=== PATIENT | male | born 1955 | race Caucasian/White ===

== ENCOUNTER 2021-01-07 14:52 | Emergency (ER) | payer OTHER ==
[2021-01-07 15:56] LABS: Absolute Lymphocytes (CBC) 1.3 K/uL (0.7-4.9); Basophils % 0.7 % (0-1.3); Hematocrit 37.4 % (39.6-49.0); Lymphocytes % 12.9 % (15.3-44.8); RBC Red Blood Cell Count 4.46 M/uL (4.33-5.43)
[2021-01-07] MEDS ORDERED: NA CHLORIDE 0.9% 1,000 ML ONE (16:04)
[2021-01-07] MEDS ORDERED: ONDANSETRON 4 MG/2 ML VIAL ONE ×2 (16:04→19:01)
[2021-01-07] MEDS ORDERED: MORPHINE 4 MG/ML SYR ONE (16:04)
[2021-01-07 16:22] LABS: Bilirubin Direct 0.2 mg/dL (0-0.2); Bilirubin Total 0.5 mg/dL (0.2-1.0)
--- NOTE | 2021-01-07 17:06 | RAD REPORT ---
EXAM DESCRIPTION: CTAbdomen Pelvis W Contrast - 01/07/2021 4:57 pm CLINICAL HISTORY: . Vomiting and Diarrhea COMPARISON: CT ABD PELVIS W CONTRAST dated 03/06/2014 TECHNIQUE: Biphasic CT imaging of the abdomen and pelvis was performed with 100 ml non-ionic IV cont rast. All CT scans are performed using dose optimization technique as appropriate and may include automated exposure control or mA/KV adjustment according to patient size. FINDINGS: Lower chest: Coronary artery stent. Mild cardiomegaly. Liver: No acute abnormality or suspicious lesions. Biliary: No biliary ductal dilatation. Stomach: No significant focal abnormality. Duodenum: No significant focal abnormality. Pancreas: No significant abnormality. Spleen: No significant abnormality. Adrenal: No suspicious lesions. Kidney/ureter: No hydronephrosis. Too small to characterize and/or benign appearing renal lesions are noted. Nonobstructive left nephrolithiasis . Retroperitoneum: No retroperitoneal adenopathy. Vascular: No aneurysm. Atherosclerosis. Bowel: Pancolitis. No bowel obstruction. Diverticulosis without diverticulitis. Peritoneum: Small volume of ascites. No perforation or abscess. No free air. Small fat containing rig ht inguinal hernia. Bladder: Grossly unremarkable. Reproductive: No adnexal masses. Bones: No acute fracture. Other: n/a IMPRESSION: Paincolitis with differential to include infectious and inflammatory etiologies. No othe r complicating features .
[2021-01-07] MEDS ORDERED: POTASSIUM 25 MEQ EFFERV TAB ONE (17:55)
[2021-01-07] MEDS ORDERED: levoFLOXacin 500 MG TAB ONE (17:55)
[2021-01-07] MEDS ORDERED: METRONIDAZOLE 500mg IVPB 500 MG/100 ML BAG IV ONE (17:56)
[2021-01-07] MEDS ORDERED: POTASSIUM CL SA 10 MEQ TAB PO ONE (19:01)
--- NOTE | 2021-01-07 19:07 | ER ---
Nurse's Notes [facility] Name: Patrick Diop Age: 65 yrs Sex: Male : 1955 Arrival Date: 01/07/2021 Time: 14:58 Bed 6 Private MD: Diagnosis: Colitis;Vomiting;Diarrhea, unspecified Presentation: 01/07 15:05 Chief complaint: N/V/D, insomnia, malaise, and decreased appetite x 1 week. 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 Coronavirus screen: At this time, the client does not indicate any symptoms associated with coronavirus-19. Ebola Screen: No symptoms or risks identified at this time. Initial Sepsis Screen: Does the patient meet any 2 criteria? No. Patient's initial sepsis screen is negative. Does the patient have a suspected source of infection? No. Patient's initial sepsis screen is negative. Risk Assessment: Do you want to hurt yourself or someone else? Patient reports no desire to harm self or others. Onset of symptoms was December 31, 2020. 15:05 Method Of Arrival: Wheelchair hb 15:05 Acuity: SANDRA 3 hb Triage Assessment: 15:26 General:. ap3 19:30 General: Appears in no apparent distress. comfortable, unkempt, Behavior is calm, dc2 cooperative. Pain: Denies pain. 19:30 GI: Patient currently denies abdominal pain, diarrhea, nausea, pain. dc2 Historical: - Allergies: 15:09 Crestor; hb - Immunization history:: Client reports receiving the 2nd dose of the Covid vaccine. - Social history:: Smoking status: Patient denies any tobacco usage or history of. Screenin:25 Abuse screen: Denies threats or abuse. Nutritional screening: Has had N/V for 3 or more ap3 days. Tuberculosis screening: No symptoms or risk factors identified. Fall Risk No fall in past 12 months (0 pts). Secondary diagnosis (15 points) impaired mobility, IV access (20 points). Ambulatory Aid- None/Bed Rest/Nurse Assist (0 pts). Gait- Weak (10 pts.). Mental Status- Oriented to own ability (0 pts). Total Mas Fall Scale indicates High Risk Score (45 or more points). Fall prevention measures have been instituted. Side Rails Up X 2 Placed Close to Nursing Station Frequent Obs/Assessments Occuring Family Present and informed to notify staff if the need to leave the bedside As available patient and family educated on Fall Prevention Program and Strategies. Assessment: 15:23 General: Behavior is cooperative, Reports feeling ill for 2-3 days. Pain: Complains of ap3 pain in right foot. Neuro: Level of Consciousness is awake, alert, obeys commands, Oriented to person, place, time, situation, Appropriate for age Moves all extremities. Speech is normal. Cardiovascular: Capillary refill < 3 seconds Patient's skin is warm and dry. Respiratory: Airway is patent Respiratory effort is even, unlabored. GI: Abdomen is round Reports diarrhea, nausea, vomiting, since 01/04/2021. : No signs and/or symptoms were reported regarding the genitourinary system. Musculoskeletal: Amputation of amputation done on 12/29/2020. Amputation still with fresh stitches. wound care provided to patient by nurse. 16:24 Reassessment: Patient and/or family updated on plan of care and expected duration. Pain ap3 level reassessed. Patient is alert, oriented x 3, equal unlabored respirations, skin warm/dry/pink. Vital Signs: 15:05 BP 138 / 89; Pulse 82; Resp 16; Temp 97.8(O); Pulse Ox 98% on R/A; Pain 6/10; hb 15:26 BP 148 / 89; Pulse 74; Pulse Ox 96% on R/A; ap3 16:24 BP 145 / 84; Pulse 77; Pulse Ox 98% on R/A; ap3 17:19 BP 162 / 95; Pulse 71; Pulse Ox 95% on R/A; ap3 18:39 BP 148 / 110; Pulse 75; Pulse Ox 100% on R/A; ap3 19:30 BP 124 / 80; Pulse 74; Resp 17; Temp 98.2; Pulse Ox 97% ; Pain 0/10; dc2 ED Course: 14:58 Patient arrived in ED. mr 15:07 Triage completed. hb 15:09 Arm band placed on. hb 15:11 Carolina Monroe, FABRIZIO is Primary Nurse. ap3 15:11 Nelson Wilde NP is PHCP. pm1 15:11 Erickson Nathan MD is Attending Physician. pm1 15:26 Patient has correct armband on for positive identification. Bed in low position. Call ap3 light in reach. Side rails up X2. Pulse ox on. NIBP on. Door closed. Noise minimized. 15:49 Initial lab(s) drawn, by me, sent to lab. Inserted saline lock: 20 gauge in right 5 antecubital area, using aseptic technique. Blood collected. 15:49 Basic Metabolic Panel Sent. [facility] 15:49 CBC with Diff Sent. [facility] 15:49 Hepatic Function Sent. [facility] 15:49 Lipase Sent. [facility] 15:50 Placed in gown. Side rails up X 1. lunchroom monitor on. Pulse ox on. NIBP on. [facility] 16:24 COVID swab sent to lab. Flu and/or RSV swab sent to lab. ap3 16:57 CT Abd/Pelvis - IV Contrast Only In Process Unspecified. EDMS 19:30 No provider procedures requiring assistance completed. IV discontinued, intact, dc2 bleeding controlled, No redness/swelling at site. Pressure dressing applied. 19:59 Primary Nurse role handed off by Carolina Monroe, FABRIZIO tt3 20:10 Kristy Mar, FABRIZIO is Primary Nurse. dc2 Administered Medications: 15:47 Drug: Zofran (Ondansetron) 4 mg Route: IVP; Site: right antecubital; ap3 17:38 Follow up: Response: No adverse reaction; Nausea is decreased ap3 15:47 Drug: NS 0.9% 1000 ml Route: IV; Rate: 1000 ml; Site: right antecubital; ap3 20:11 Follow up: IV Status: Completed infusion; IV Intake: 1000ml dc2 15:48 Drug: morphine 4 mg {Note: RASS 0.} Route: IVP; Site: right antecubital; ap3 17:38 Follow up: Response: No adverse reaction; Pain is decreased ap3 17:38 Drug: Potassium Effervescent Tablet 50 mEq Route: PO; ap3 18:38 Follow up: Response: Nausea is increased ap3 17:38 Drug: LevaQUIN (levofloxacin) 500 mg Route: PO; ap3 18:38 Follow up: Response: No adverse reaction ap3 17:38 Drug: Flagyl (metroNIDAZOLE) 500 mg Volume: 100 ml; Route: IVPB; Rate: 200 ml/hr; ap3 Infused Over: 30 mins; Site: right antecubital; 19:00 Follow up: IV Status: Completed infusion; IV Intake: 100ml dc2 18:38 Drug: Potassium Chloride Liquid 40 mEq Route: PO; ap3 19:30 Follow up: Response: No adverse reaction dc2 18:38 Drug: Zofran (Ondansetron) 4 mg Route: IVP; Site: right antecubital; ap3 19:30 Follow up: Response: Nausea is decreased dc2 Intake: 19:00 IV: 100ml; Total: 100ml. dc2 20:11 IV: 1000ml; Total: 1100ml. dc2 Outcome: 19:07 Discharge ordered by MD. pm1 19:30 Discharged to home ambulatory, With Power of Technology Sales Specialist dc2 19:30 Condition: improved 19:30 Discharge instructions given to patient, outside upholsterer, Instructed on discharge dc2 instructions, follow up and referral plans. Demonstrated understanding of instructions, follow-up care, medications, Prescriptions given X 3. 20:13 Patient left the ED. dc2 Signatures: Dispatcher [employer] EDWA Velvet Lockhart ChaniNelson, ELECTRICAL PANEL BUILDER ELECTRICAL PANEL BUILDER pm1 Brisa Lora, RN RN Christine Johnson [facility] Carolina Monroe RN RN ap3 Brendon Madrid 3 Kristy Mar RN RN dc2
--- NOTE | 2021-01-07 19:08 | EDPHYS ---
Physician Documentation [facility] Name: Patrick Diop Age: 65 yrs Sex: Male : 1955 Arrival Date: 01/07/2021 Time: 14:58 Bed 6 Private MD: ED Physician Erickson Nathan HPI: 01/07 15:48 This 65 yrs old Male presents to ER via Wheelchair with complaints of pm1 Vomiting/Diarrhea. 15:48 The patient presents to the emergency department with vomiting, diarrhea. Onset: The pm1 symptoms/episode began/occurred 1 week(s) ago, while hospitalized at [facility] for amputation of right great toe. Possible causes: unknown. The symptoms are aggravated by food , The symptoms are alleviated by nothing. Associated signs and symptoms: Pertinent negatives: abdominal pain, fever, chest pain, shortness of breath. Severity of symptoms: in the emergency department the symptoms are unchanged. The patient has been recently seen by a physician: 1 week(s) ago, with different complaint(s), Amputation of right great toe. Historical: - Allergies: 15:09 Crestor; hb - Immunization history:: Client reports receiving the 2nd dose of the Covid vaccine. - Social history:: Smoking status: Patient denies any tobacco usage or history of. ROS: 15:48 Cardiovascular: Negative for chest pain, palpitations, and edema, Respiratory: Negative pm1 for shortness of breath, cough, wheezing, and pleuritic chest pain. 15:48 Back: Negative for injury and pain, : Negative for injury, bleeding, discharge, and swelling, MS/Extremity: Negative for injury and deformity, Skin: Negative for injury, rash, and discoloration, Neuro: Negative for headache, weakness, numbness, tingling, and seizure. 15:48 Constitutional: Positive for poor PO intake, Negative for body aches, fever. 15:48 Abdomen/GI: Positive for nausea, vomiting, and diarrhea, Negative for abdominal pain, constipation. 15:48 All other systems are negative. Exam: 15:48 Constitutional: This is a well developed, well nourished patient who is awake, alert, pm1 and in no acute distress. Head/Face: Normocephalic, atraumatic. 15:48 Skin: Warm, dry with normal turgor. Normal color with no rashes, no lesions, and no evidence of cellulitis. MS/ Extremity: Pulses equal, no cyanosis. Neurovascular intact. Full, normal range of motion. 15:48 Eyes: Exam is negative for acute changes, Extraocular movements: no acute changes, Conjunctiva: no acute changes, no injection, Sclera: no acute changes, icterus, is not appreciated. 15:48 ENT: Exam is negative for acute changes, Mouth: no acute changes, Lips: normal, moist, Oral mucosa: normal, pink and intact, moist. 15:48 Cardiovascular: Exam negative for acute changes, Rate: normal, Rhythm: regular, Pulses: no pulse deficits are appreciated, Edema: is not appreciated. 15:48 Respiratory: Exam negative for acute changes, respiratory distress, shortness of breath, Breath sounds: are clear throughout. 15:48 Abdomen/GI: Inspection: obese Bowel sounds: normal, in all quadrants, Palpation: abdomen is soft and non-tender, in all quadrants. 15:48 Neuro: Exam negative for acute changes, Orientation: is normal, Mentation: is normal, Motor: is normal, moves all fours. Vital Signs: 15:05 BP 138 / 89; Pulse 82; Resp 16; Temp 97.8(O); Pulse Ox 98% on R/A; Pain 6/10; hb 15:26 BP 148 / 89; Pulse 74; Pulse Ox 96% on R/A; ap3 16:24 BP 145 / 84; Pulse 77; Pulse Ox 98% on R/A; ap3 17:19 BP 162 / 95; Pulse 71; Pulse Ox 95% on R/A; ap3 18:39 BP 148 / 110; Pulse 75; Pulse Ox 100% on R/A; ap3 19:30 BP 124 / 80; Pulse 74; Resp 17; Temp 98.2; Pulse Ox 97% ; Pain 0/10; dc2 MDM: 15:12 Patient medically screened. pm1 17:30 Differential diagnosis: Nonspecific abd pain, appendicitis, diverticulitis, viral pm1 gastroenteritis, gastroenteritis, c. difficile. 17:30 Data reviewed: vital signs. Data interpreted: Pulse oximetry: on room air is 95 %. pm1 Interpretation: normal. 17:35 ED course: Formed patient and medical power of corporate attorney current labs and CT reading. pm1 Patient reports resolution of nausea and wanting to eat a sheperds pie. Will administer Levaquin and Flagyl in the ER pending remaining lab results. 18:27 Counseling: I had a detailed discussion with the patient and/or guardian regarding: the pm1 historical points, exam findings, and any diagnostic results supporting the discharge/admit diagnosis, lab results, radiology results, the need for outpatient follow up, to return to the emergency department if symptoms worsen or persist or if there are any questions or concerns that arise at home. 18:32 ED course: Not tolerating potassium effervescent. Will give patient potassium p.o. pm1 tablet. 19:03 ED course: Patient nontoxic in appearance. WBC within normal limits. Mild dehydration pm1 present matching history of occasional decreased p.o. intake and occasional vomiting. Patient hydrated with IV fluids here. Will discharge patient home with antinausea medicine and antibiotics. Will send home with Levaquin and Flagyl. Levaquin was the antibiotic that the patient did not take postoperative. Patient and family educated on return precautions. 01/07 15:30 Order name: Basic Metabolic Panel; Complete Time: 16:42 pm1 01/07 15:30 Order name: CBC with Diff; Complete Time: 16:42 pm1 01/07 15:30 Order name: Hepatic Function; Complete Time: 16:42 pm1 01/07 15:30 Order name: Lipase; Complete Time: 16:42 pm1 01/07 16:07 Order name: Flu; Complete Time: 16:57 pm1 01/07 15:30 Order name: CT Abd/Pelvis - IV Contrast Only; Complete Time: 17:26 pm1 01/07 17:43 Order name: SARS-COV-2 RT PCR; Complete Time: 17:45 EDMS 01/07 15:30 Order name: IV Saline Lock; Complete Time: 15:48 pm1 01/07 15:30 Order name: Labs collected and sent; Complete Time: 15:48 pm1 Administered Medications: 15:47 Drug: Zofran (Ondansetron) 4 mg Route: IVP; Site: right antecubital; ap3 17:38 Follow up: Response: No adverse reaction; Nausea is decreased ap3 15:47 Drug: NS 0.9% 1000 ml Route: IV; Rate: 1000 ml; Site: right antecubital; ap3 20:11 Follow up: IV Status: Completed infusion; IV Intake: 1000ml dc2 15:48 Drug: morphine 4 mg {Note: RASS 0.} Route: IVP; Site: right antecubital; ap3 17:38 Follow up: Response: No adverse reaction; Pain is decreased ap3 17:38 Drug: Potassium Effervescent Tablet 50 mEq Route: PO; ap3 18:38 Follow up: Response: Nausea is increased ap3 17:38 Drug: LevaQUIN (levofloxacin) 500 mg Route: PO; ap3 18:38 Follow up: Response: No adverse reaction ap3 17:38 Drug: Flagyl (metroNIDAZOLE) 500 mg Volume: 100 ml; Route: IVPB; Rate: 200 ml/hr; ap3 Infused Over: 30 mins; Site: right antecubital; 19:00 Follow up: IV Status: Completed infusion; IV Intake: 100ml dc2 18:38 Drug: Potassium Chloride Liquid 40 mEq Route: PO; ap3 19:30 Follow up: Response: No adverse reaction dc2 18:38 Drug: Zofran (Ondansetron) 4 mg Route: IVP; Site: right antecubital; ap3 19:30 Follow up: Response: Nausea is decreased dc2 Disposition: 01/08 07:00 Co-signature as Attending Physician, Erickson Nathan MD I agree with the assessment and rn plan of care. Attestation: The patient's history, exam findings, diagnostics, and a summary of any interventions or procedures was reviewed in detail with Nelson Wilde NP. Disposition Summary: 01/07/21 19:07 Discharge Ordered Location: Home pm1 Problem: new pm1 Symptoms: have improved pm1 Condition: Stable pm1 Diagnosis - Colitis pm1 - Vomiting pm1 - Diarrhea, unspecified pm1 Followup: pm1 - With: Emergency Department - When: As needed - Reason: Worsening of condition Followup: pm1 - With: Private Physician - When: 2 - 3 days - Reason: Recheck today's complaints, Continuance of care, Re-evaluation by your physician Discharge Instructions: - Discharge Summary Sheet pm1 - Food Choices to Help Relieve Diarrhea, Adult pm1 - Diarrhea, Adult pm1 - Clear Liquid Diet, Adult pm1 - Nausea and Vomiting, Adult pm1 - Colitis pm1 Forms: - Medication Reconciliation Form pm1 - Thank You Letter pm1 - Antibiotic Education pm1 - Prescription Opioid Use pm1 Prescriptions: - ondansetron 4 mg Oral tablet,disintegrating - take 1 tablet by ORAL route every 8 hours As needed; 20 tablet; Refills: 0, pm1 Product Selection Permitted - Flagyl 500 mg Oral Tablet - take 1 tablet by ORAL route every 8 hours for 10 days; 30 tablet; Refills: 0, pm1 Product Selection Permitted - dicyclomine 20 mg Oral Tablet - take 1 tablet by ORAL route every 6 hours As needed; 20 tablet; Refills: 0, pm1 Product Selection Permitted - levofloxacin 500 mg Oral Tablet - take 1 tablet by ORAL route once daily for 10 days; 10 tablet; Refills: 0, pm1 Product Selection Permitted Signatures: Dispatcher [employer] EDMS Erickson Nathan MD MD rn Marinas, Patrick, CUSTOMER ENGAGEMENT REPRESENTATIVE CUSTOMER ENGAGEMENT REPRESENTATIVE pm1 Brisa Lora RN RN hb Prokisch, Amanda, RN RN ap3 Kristy Mar RN dc2 Corrections: (The following items were deleted from the chart) 01/07 16:36 16:07 CORONAVIRUS+MR.LAB.BRZ ordered. EDLA EDMS
[2021-01-07 20:24] VITALS: BP 124/80; TEMP 98.2; O2SAT 97
== END 2021-01-07 20:13 | disposition home or self-care (01) ==
LOC: ER 14:52
DX: K52.9 Noninfective gastroenteritis and colitis, unspecified (principal); Z20.822 Contact with and (suspected) exposure to COVID-19; Z88.8 Allergy status to other drugs, medicaments and biological substances
CPT/HCPCS: 96365; 96361; 85025; 80048; 36415; 80076; 83690; 87804 ×2; 74177; 96375; 99284; U0003; Q9967; J7030; J2405 ×2